=== PATIENT | female | born 1960 | race Caucasian/White ===

== ENCOUNTER → 2017-04-21 | Outpatient (CLI) | payer BC ==
[2017-04-21 13:29] LABS: BLOOD GAS BASE EXCESS -0.5 mmol/L (-2-2); BLOOD GAS HCO3 23 mmol/L (22-26); BLOOD GAS METHEMOGLOBIN 1.1 % (0-2); BLOOD GAS O2 HGB SATURATION 92 % (90-100); BLOOD GAS OXYGEN CONTENT 18.7 Vol % (12.0-20.0); BLOOD GAS PCO2 35 mmHg (38-42); BLOOD GAS PO2 79 mmHg (61-120); BLOOD GAS TOTAL HGB 14.5 G/DL (12.0-16.0); CRITICAL VALUE NO; DRAW SITE RT RADIAL; FIO2 21 %; NUMBER OF ARTERIAL PUNCTURES 1; STAT NO; TEMP CORR TO 98.6; ULNAR PULSE PRESENT
--- NOTE | 2017-04-27 10:39 | RSPPFT ---
DATE OF PROCEDURE: 04/21/17 COMMENTS: Spirometry shows FVC of 3.7 predicted 3.0, FEV1 of 2.7 predicted 2.4, FEV1/FVC ratio 73% predicted 83%. Lung volumes are within the predicted range. DLCO is 73% of predicted. IMPRESSION: On the basis of the above, patient has flow values and lung volumes within the predicted range with a reduction in the DLCO.
== END ==
LOC: HRSP 12:41
PROVIDERS: ATTEND Internal Medicine Pulmonary Disease
DX: G47.30 Sleep apnea, unspecified (principal)
CPT/HCPCS: 36600; 82805; 94060; 94620; 94726; 94729

== ENCOUNTER → 2017-04-22 | Day surgery (SDC) | payer BC ==
[~2017-04-22] MED LIST: LACTATED RINGER'S 1000 ML INJ 1,000 ML ONE; PROPOFOL 500 MG/50 ML BTL IV ONE
--- NOTE | 2017-04-22 09:16 | GIPROC ---
[facility] [address] [facility], [address] EGD PROCEDURE REPORT EXAM DATE: 04/22/2017 PATIENT NAME: Bella Jacobson MR #: [id number] BIRTHDATE: 1960 ATTENDING: Jony Portillo MD ORDER #: [id number] DIETARY AIDE COOK: none STATUS: outpatient INDICATIONS: The patient is a 56 yr old female here for an EGD due to heartburn PROCEDURE PERFORMED: EGD w/ biopsy MEDICATIONS: None and Per Anesthesia. TOPICAL ANESTHETIC: none CONSENT: The patient understands the risks and benefits of the procedure and understands that these risks include, but are not limited to: sedation, allergic reaction, infection, perforation and/or bleeding. Alternative means of evaluation and treatment include, among others: physical exam, x-rays, and/or surgical intervention. The patient elects to proceed with this endoscopic procedure. medical equipment was checked for proper function. Hand hygiene and appropriate measures for infection prevention was taken. After the risks, benefits and alternatives of the procedure were thoroughly explained, Informed consent was verified, confirmed and timeout was successfully executed by the treatment team. The patient was anesthetized with anesthesia and the EC-2990i ([id number]) endoscope was introduced through the mouth and advanced to the second portion of the duodenum. Distal gastritis seen. Biospy for h. pylori. Retroflexed views revealed a hiatal hernia The gastroscope was then slowly withdrawn and removed. Mild gastritis. ADVERSE EVENTS: There were no complications. IMPRESSIONS: 1. Mild gastritis 2. Retroflexed views revealed a hiatal hernia RECOMMENDATIONS: Await biopsy results. Biopsy results will not be ready for 7-10 days. If you don't hear from us in two weeks, call our office for biopsy results. PATIENT CONDITION: fair DISPOSITION: Home REPEAT EXAM: NONE Jony Portillo MD eSigned: Jony Portillo MD 04/22/2017 9:16 AM cc: PATIENT NAME: Bella Jacobson MR#: [id number]
== END | disposition home or self-care (01) ==
LOC: ESDC 06:25
PROVIDERS: ATTEND Surgery
DX: R12 Heartburn (principal); K29.70 Gastritis, unspecified, without bleeding; K44.9 Diaphragmatic hernia without obstruction or gangrene
CPT/HCPCS: 00740; 43239; 88305; 88312; J3010; J7120

== ENCOUNTER 2017-07-13 05:28 | Inpatient (IN) | payer BC ==
[~2017-07-13] VITALS: Ht 162.6 cm; Wt 113.4 kg
[~2017-07-13 05:28] MED LIST changes: +ASPI-110 PO; +FISH100020 PO; -LACTATED RINGER'S 1000 ML INJ 1,000 ML ONE; +OMEP40CA2 PO; +PREM0.3T2 PO; -PROPOFOL 500 MG/50 ML BTL IV ONE; +SACC1CAP3 PO; +SIMV40TA PO; +VALS1TAB64 PO; +ZOLO50TA PO
[2017-07-13] MEDS ORDERED: SODIUM CHLORID 0.9% 500 ML IV PRN (06:00)
[2017-07-13] MEDS ORDERED: ONDANSETRON HCL 4 MG/2 ML VIAL IV PUSH SCH (06:00)
[2017-07-13] MEDS ORDERED: LACTATED RINGER'S 1000 ML IV PRN (06:00)
[2017-07-13] MEDS ORDERED: METOPROLOL TARTRATE 25 MG TAB PO PRN (06:00)
[2017-07-13] MEDS ORDERED: CHLORHEXIDINE GLUCONATE 2 % 1 PACK (2 CLOTHS) TOPICAL PRN (06:00)
[2017-07-13] MEDS ORDERED: APREPITANT 40 MG CAP PO SCH (06:00)
[2017-07-13] MEDS ORDERED: POVIDONE IODINE 5% (ANTISEPSIS KIT) 4 APPLICATIONS EACH NARE PRN (06:00)
[2017-07-13] MEDS ORDERED: ceFAZolin 2 GM PREMIX 50 ML IV SCH (06:00)
[2017-07-13] MEDS ORDERED: SCOPOLAMINE 1.5 MG PATCH T-DERMAL SCH (06:00)
[2017-07-13] MEDS ORDERED: INSULIN HUMAN REGULAR 1,000 UNITS/10 ML VIAL SQ PRN (06:00)
[2017-07-13] MEDS ORDERED: ACETAMINOPHEN 1000 MG/100 ML 100 ML IV SCH (06:00)
[2017-07-13] MEDS ORDERED: metroNIDAZOLE 500 MG INJ 100 ML IV SCH (06:00)
[2017-07-13] MEDS ORDERED: ACETAMINOPHEN 1000 MG/100 ML 0 ML IV ONE (06:55)
[2017-07-13] MEDS ORDERED: BUPIVACAINE/EPINEPHRINE 0.25% 50 ML VIAL ONE (07:04)
[2017-07-13] MEDS ORDERED: FAMOTIDINE 20 MG/2 ML VIAL ONE (07:08)
[2017-07-13] MEDS ORDERED: METHYLENE BLUE 10 MG/ML VIAL IV ONE (08:22)
--- NOTE | 2017-07-13 09:29 | HHI.PR ---
Immediate Post Op Note Procedure Date: Jul 13, 2017 Pre Op Diagnosis: morbid obesity bmi 43, ELLEN, hypercholestremia, htn Post Op Diagnosis: same Surgeon: Jony Portillo MD Research Affiliate(s): Dr. Chang Procedure: lap sleeve gastrectomy Findings: no leak with methylene blue Complications: none Specimen(s) removed: none Estimated blood loss: 5cc Anesthesia: General Drains: None Patient to: PACU Patient Condition: Good Jony Portillo MD Jul 13, 2017 09:29
[2017-07-13] MEDS ORDERED: ACETAMINOPHEN 325MG/HYDROcodone 7.5MG/15ML UDC PO PRN (09:30)
[2017-07-13] MEDS ORDERED: DO NOT ADM ANY ANTICOAGULANT DRUGS PRN (09:30)
[2017-07-13] MEDS ORDERED: diphenhydrAMINE HCL 50 MG/ML VIAL IV PUSH PRN (09:30)
[2017-07-13] MEDS ORDERED: Post-op Orders (for Pharmacy) MISC OTHER ONE (09:30)
[2017-07-13] MEDS ORDERED: SODIUM CHLORIDE 0.9% FLUSH 10 ML FLUSH IV FLUSH PRN (09:30)
[2017-07-13] MEDS ORDERED: ONDANSETRON HCL 4 MG/2 ML VIAL IV PUSH PRN (09:30)
[2017-07-13] MEDS ORDERED: diphenhydrAMINE HCL ELIXIR 12.5 MG/5 ML CUP PO PRN (09:30)
[2017-07-13] MEDS ORDERED: ENALAPRILAT 1.25 MG/ML VIAL IV PUSH PRN (09:30)
[2017-07-13] MEDS ORDERED: *morphine SULFATE 8 MG/ML PERIprocedure ONLY ONE (10:07)
[2017-07-13] MEDS: D5-1/2 NS + KCL 20 MEQ INJ 1,000 ML IV SCH ×3 (11:00→22:50)
[2017-07-13] MEDS: SODIUM CHLORIDE 0.9% FLUSH 10 ML FLUSH IV FLUSH SCH ×2 (11:00→21:00)
[2017-07-13] MEDS: ACETAMINOPHEN 1000 MG/100 ML 100 ML IV SCH ×2 (11:54→18:05)
[2017-07-13] MEDS: METOCLOPRAMIDE HCL 10 MG/2 ML VIAL IV PUSH SCH ×2 (11:55→18:05)
[2017-07-13 12:00] VITALS: BP 126/64; PULSE 73; RESP 17; TEMP 96.6; O2SAT 94
[2017-07-13] MEDS ORDERED: NEOSTIGMINE 3 MG/3 ML SYR IV ONE (12:00)
[2017-07-13] MEDS ORDERED: DEXAMETHASONE SOD PHOS 4 MG/ML VIAL IV ONE (12:00)
[2017-07-13] MEDS ORDERED: PROPOFOL 200 MG/20 ML AMP IV ONE (12:00)
[2017-07-13] MEDS ORDERED: ROCURONIUM INJ 50 MG/5 ML SYRINGE IV PUSH ONE (12:00)
[2017-07-13] MEDS ORDERED: LACTATED RINGER'S 1000 ML INJ 1,000 ML IV ONE (12:00)
[2017-07-13] MEDS ORDERED: MIDAZOLAM HCL 2 MG/2 ML VIAL IV ONE (12:00)
[2017-07-13] MEDS ORDERED: ePHEDrine/NS 25 MG/5 ML SYR IV ONE (12:00)
[2017-07-13] MEDS ORDERED: LIDOCAINE HCL 1% PF 5 ML AMPULE OTHER ONE (12:00)
[2017-07-13] MEDS ORDERED: ONDANSETRON HCL 4 MG/2 ML VIAL IV PUSH ONE (12:00)
[2017-07-13] MEDS ORDERED: GLYCOPYRROLATE 1 MG/5 ML SYRINGE IV PUSH ONE (12:00)
[2017-07-13] MEDS: ACETAMINOPHEN 325MG/HYDROcodone 7.5MG/15ML UDC PO PRN ×2 (12:29→18:33)
[2017-07-13] MEDS: metroNIDAZOLE 500 MG INJ 100 ML IV SCH ×2 (15:10→22:50)
[2017-07-13] MEDS: ENOXAPARIN SODIUM 40 MG/0.4 ML SYRINGE SQ SCH (15:10)
[2017-07-13] MEDS: RESP: ALBUTEROL 2.5 MG/3 ML NEB (SCH) INH ×2 (15:51→20:38)
[2017-07-13 15:52] VITALS: O2SAT 96
[2017-07-13 16:00] VITALS: BP 100/56; PULSE 86; RESP 17; TEMP 96.8; O2SAT 92
[2017-07-13 20:00] VITALS: BP 123/66; PULSE 80; RESP 18; TEMP 96.8; O2SAT 94
[2017-07-13 20:38] VITALS: O2SAT 95
[2017-07-14] VITALS: BP 120/61; PULSE 76; RESP 17; TEMP 96.2; O2SAT 95
[2017-07-14] MEDS: ACETAMINOPHEN 325MG/HYDROcodone 7.5MG/15ML UDC PO PRN ×2 (00:26→08:01)
[2017-07-14] MEDS: METOCLOPRAMIDE HCL 10 MG/2 ML VIAL IV PUSH SCH ×2 (00:27→06:08)
[2017-07-14] MEDS: RESP: ALBUTEROL 2.5 MG/3 ML NEB (SCH) INH ×4 (01:04→11:21)
[2017-07-14 01:07] VITALS: O2SAT 94
[2017-07-14] MEDS: ACETAMINOPHEN 1000 MG/100 ML 100 ML IV SCH ×2 (01:14→06:08)
[2017-07-14] MEDS: metroNIDAZOLE 500 MG INJ 100 ML IV SCH (06:26)
[2017-07-14 07:52] VITALS: O2SAT 93
[2017-07-14 08:00] VITALS: BP 131/73; PULSE 71; RESP 19; TEMP 96.9; O2SAT 95
[2017-07-14] MEDS: SODIUM CHLORIDE 0.9% FLUSH 10 ML FLUSH IV FLUSH SCH (08:00)
[2017-07-14] MEDS: PANTOPRAZOLE SOD 40 MG DELAYED RELEASE TAB PO SCH ×2 (08:00→08:15)
[2017-07-14] MEDS: D5-1/2 NS + KCL 20 MEQ INJ 1,000 ML IV SCH (08:01)
[2017-07-14 09:02] LABS: AUTOMATED NEUTROPHIL # 8.3 TH/MM3 (1.8-7.7); BASOPHIL % 0.3 % (0.0-2.0); EOSINOPHIL % 0.1 % (0.0-4.0); HEMATOCRIT 37.4 % (35.0-46.0); HEMO FLAGS DIFF FINAL; LYMPHOCYTE # 1.9 TH/MM3 (1.0-4.8); MEAN CELL VOLUME 96.1 FL (80.0-100.0); MEAN CORPUSCULAR HEMOGLOBIN 32.1 PG (27.0-34.0); MEAN CORPUSCULAR HGB CONC 33.4 % (32.0-36.0); NEUT % 73.6 % (16.0-70.0); PLATELET COUNT 258 TH/MM3 (150-450); RED BLOOD COUNT 3.89 MIL/MM3 (4.00-5.30); RED CELL DISTRIBUTION WIDTH 13.9 % (11.6-17.2); WHITE BLOOD COUNT 11.3 TH/MM3 (4.0-11.0)
[2017-07-14] MEDS ORDERED: METOCLOPRAMIDE HCL 10 MG/2 ML VIAL IV PUSH PRN (09:30)
[2017-07-14 09:31] LABS: BICARBONATE 22.9 MEQ/L (21.0-32.0); POTASSIUM 3.7 MEQ/L (3.5-5.1)
--- NOTE | 2017-07-14 09:53 | HHI.PR ---
Subjective Subjective Notes Sitting up in bed No GI complaints Pain and nausea well controlled Tolerating fluids Objective Vitals/I&O Vital Signs Date Time Temp Pulse Resp B/P (MAP) Pulse Ox O2 Delivery O2 Flow Rate FiO2 07/14/17 08:00 96.9 71 19 131/73 (92) 95 07/14/17 07:52 21 07/13/17 14:03 Nasal Cannula 2.00 Labs Laboratory Tests Test 07/14/17 07:12 White Blood Count 11.3 Red Blood Count 3.89 Hemoglobin 12.5 Hematocrit 37.4 Mean Corpuscular Volume 96.1 Mean Corpuscular Hemoglobin 32.1 Mean Corpuscular Hemoglobin Concent 33.4 Red Cell Distribution Width 13.9 Platelet Count 258 Mean Platelet Volume 8.8 Neutrophils (%) (Auto) 73.6 Lymphocytes (%) (Auto) 17.0 Monocytes (%) (Auto) 9.0 Eosinophils (%) (Auto) 0.1 Basophils (%) (Auto) 0.3 Neutrophils # (Auto) 8.3 Lymphocytes # (Auto) 1.9 Monocytes # (Auto) 1.0 Eosinophils # (Auto) 0.0 Basophils # (Auto) 0.0 CBC Comment DIFF FINAL Differential Comment Blood Urea Nitrogen 6 Creatinine 0.75 Random Glucose 109 Calcium Level 8.9 Magnesium Level 2.0 Sodium Level 139 Potassium Level 3.7 Chloride Level 108 Carbon Dioxide Level 22.9 Anion Gap 8 Estimat Glomerular Filtration Rate 79 Cardiovascular: Regular Lungs: Clear Abdomen: Post-op tenderness Extremities: Perfused Wound Wound : Wound Location: Abdomen Appearance: Clean & Dry A/P Assessment and Plan 57yo F POD#1 Laparoscopic VSG -Continue with frequent ambulation -Continue to increase fluids as tolerated Discharge Planning D/C home later today Attending Statement patient seen at bedside patient doing well tolerating liquids pain controlled plan for dc this afternoon Attestation The exam, history, and the medical decision-making described in the above note were completed with the assistance of the mid-level provider. I reviewed and agree with the findings presented. I attest that I had a [id number] encounter with the patient on the same day, and personally performed and documented my assessment and findings in the medical record. Morgan Elise Jul 14, 2017 09:53 Jony Portillo MD Jul 14, 2017 21:58
[2017-07-14] MEDS ORDERED: SERTRALINE HCL 50 MG TAB PO SCH (10:00)
[2017-07-14] MEDS ORDERED: INFLUENZA VIRUS VACCINE (QUADRIVALENT) 0.5 ML SYR IM ONE (10:00)
[2017-07-14] MEDS ORDERED: PNEUMOCOCCAL POLYVALENT INJ 25 MCG/0.5 ML SYR IM ONE (10:00)
--- NOTE | 2017-07-14 10:28 | MP ---
cc: ANN PORTILLO MD DATE OF SURGERY 07/13/2017 PREOPERATIVE DIAGNOSIS Morbid obesity, BMI of 43, hypertension, sleep apnea, hypercholesteremia. POSTOPERATIVE DIAGNOSIS Morbid obesity, BMI of 43, hypertension, sleep apnea, hypercholesteremia, hiatal hernia. PROCEDURE PERFORMED 1. laparoscopic sleeve gastrectomy. 2. Laparoscopic hiatal hernia repair. SURGEON Dr. Ann Portillo [employer] Dr. Federico Chang ANESTHESIA GETA IV FLUIDS See anesthesia sheet ESTIMATED BLOOD LOSS 5 cc. DRAINS None COMPLICATIONS None WOUND CLASSIFICATION Clean contaminated SPECIMEN None FINDINGS No leak on methylene blue. INDICATION The patient is a 57-year-old female who presented with morbid obesity, BMI 43. The patient with multiple comorbidities and multiple attempts at weight loss without success, therefore decision was made after a thorough bariatric workup for sleeve gastrectomy. Discussed with the patient in detail. DETAILS OF THE PROCEDURE The patient was brought to the operating suite, placed in the supine position. She was prepped and draped in the usual sterile fashion after induction of general tracheal anesthesia. A brief time-out done stating correct patient, procedure, and surgical site. We were all in agreement with this. Attention first directed to the umbilicus, the xyphoid 15 cm below, local anesthetic injected. A stab reji incision made with an 11-blade. OptiView trocar placed intra-abdominally, abdomen insufflated to 50 mm pneumoperitoneum. Cursory inspection revealed no evidence of injury. Several other trocars placed including a right upper quadrant 5-mm trocar for liver retraction. The patient then placed in reverse Trendelenburg, liver retraction placed and held in place by the robot arm. Several other ports were placed including a right lower quadrant 15 mm port followed by two left lower quadrant, left lateral quadrant and 5 mm ports. The patient then airplaned to the right and dissection began the mid greater curvature vascular from the stomach using a harmonic scalpel 5 cm from the pylorus and carried toward the angle of His. The Angle of His was taken down bluntly. There was noted to be significant hiatal hernia. Dissection out of the left and right aidan was done circumferentially in order to reduce the esophagus down appropriately into the abdominal area. The 36-Lebanese ViSiGi Bougie was advanced in place. Once the crura was thoroughly dissected out, it was reapproximated anteriorly using 0-silk intracorporeal stitches in [id number] fashion. Next, dissection of the stomach was commenced 5 cm from the pylorus and carried up all the way to the angle of His excising the stomach along the 36-Lebanese bougie as a calibration device. This was done with flex [place] 60 in the SONIDO stapler with initial black load, followed by green loads and gold load. These were all reinforced with SeamGuard out to a distance 2 cm left of the angle incisura and the staple line. This was approximately 1 cm from the GE junction staple line. Next, the methylene blue 60 cc x two was instilled by anesthesia without evidence of extravasation. Next, the sleeve gastrectomy staple line was over sewn using a 2-0 Stratafix running suture. Next, Evicel was placed. The ViSiGi was removed. The stomach was removed through the right lower quadrant 15 mm port. This was then closed with a 0 Vicryl in a [id number] fashion. Pneumoperitoneum was removed. All ports were removed. The rest of the ports were closed with 4-0 Monocryl subcuticular suture. Sterile dressings then placed. The patient tolerated procedure well. There were no intraoperative complications. The patient was extubated and taken to the PACU. All lap and instrument counts were correct at the end of the procedure. MD AMADO Abrams/GERMAN /5:38 PM /10:04 AM [place]
[2017-07-14 12:00] VITALS: BP 138/65; PULSE 69; RESP 19; TEMP 96.9; O2SAT 95
[2017-07-14] MEDS: ENOXAPARIN SODIUM 40 MG/0.4 ML SYRINGE SQ SCH (12:58)
== END 2017-07-14 15:04 | disposition home or self-care (01) | DRG 621 ==
LOC: HSDI 05:28 → N07A 11:07
PROVIDERS: ADMIT Surgery; ATTEND Surgery
PROC: 0BQT4ZZ Repair Diaphragm, Percutaneous Endoscopic Approach (ICD-10-PCS; 2017-07-13)
PROC: 0DB64Z3 Excision of Stomach, Percutaneous Endoscopic Approach, Vertical (ICD-10-PCS; principal; 2017-07-13 07:17)
DX: E66.01 Morbid (severe) obesity due to excess calories (principal); K44.9 Diaphragmatic hernia without obstruction or gangrene; I10 Essential (primary) hypertension; Z68.41 Body mass index [BMI] 40.0-44.9, adult; G47.33 Obstructive sleep apnea (adult) (pediatric); E78.00 Pure hypercholesterolemia, unspecified; F32.9 Major depressive disorder, single episode, unspecified; Z23 Encounter for immunization
CPT/HCPCS: 80048; 83735; 85025; 90686; 90732; 94150; 94640; 94664; J0131; J0690; J1100; J1650; J2250; J2270; J2405; J2710; J2765; J3010; J3480; J7120; J7613; J8501; Q2038